=== PATIENT | female | born 1990 | race Caucasian/White ===

== ENCOUNTER 2022-12-18 18:33 | Emergency (ER) | payer SELFPAY ==
[~2022-12-18] VITALS: Ht 160 cm; Wt 55.0 kg
[2022-12-18 18:35] VITALS: O2SAT 99
[2022-12-18] MEDS ORDERED: TETANUS, DIPHTHERIA, PERTUSSIS VAC/PF 0.5ML (>10YR OLD) IM ONE ×2 (20:00→22:15)
[2022-12-18] MEDS ORDERED: LIDOCAINE HCL/PF 1% 10 MG/ML 5ML VIAL INFIL ONE (20:00)
[2022-12-18] MEDS ORDERED: BACITRACIN ZINC OINT UDPKT TOP ONE (20:00)
[2022-12-18] MEDS ORDERED: BO1 TP (21:28)
[2022-12-18] MEDS ORDERED: NAPR-681 MT (21:28)
[2022-12-18] MEDS ORDERED: BACITRACIN ZINC OINT UDPKT TOP NR (22:15)
[2022-12-18] MEDS ORDERED: LIDOCAINE HCL/PF 1% 10 MG/ML 5ML VIAL INFIL NR (22:15)
[2022-12-18 22:58] VITALS: BP 132/67; PULSE 82; RESP 16; TEMP 98.4
== END 2022-12-18 22:59 | disposition home or self-care (01) ==
LOC: ER 18:33
DX: S91.312A Laceration without foreign body, left foot, initial encounter (principal); X58.XXXA Exposure to other specified factors, initial encounter; Y93.89 Activity, other specified; Y92.89 Other specified places as the place of occurrence of the external cause; Y99.8 Other external cause status
CPT/HCPCS: 99284; 73090; 73630; 90715; 90471; J3490